=== PATIENT | female | born 1965 | race Caucasian/White ===

== ENCOUNTER 2016-05-23 06:02 | Day surgery (SDC) | payer BC ==
[~2016-05-23 06:02] MED LIST: IV START KIT ONE; LACTATED RINGERS 1,000 ML ONE
[2016-05-23] MEDS ORDERED: ONDANSETRON 4 MG/2ML 2 ML VIAL IV PRN (06:24)
[2016-05-23] MEDS ORDERED: LACTATED RINGERS 1,000 ML IV SCH (06:24)
[2016-05-23] MEDS ORDERED: LIDOCAINE 1% 2 ML VIAL ID PRN (06:24)
[2016-05-23] MEDS ORDERED: LIDOCAINE 2% (PRES FREE) 5 ML VIAL ONE (06:58)
[2016-05-23] MEDS ORDERED: PROPOFOL 20 ML IV ONE (06:58)
[2016-05-23] MEDS ORDERED: METOCLOPRAMIDE HCL 5 MG/ML 2ML VIAL ONE (07:07)
[2016-05-23] MEDS ORDERED: FAMOTIDINE 10 MG/ML 2ML VIAL ONE (07:09)
== END 2016-05-23 08:32 | disposition home or self-care (01) ==
LOC: SDC 06:02
PROVIDERS: ATTEND Surgery
PROC: 0DJD8ZZ Inspection of Lower Intestinal Tract, Via Natural or Artificial Opening Endoscopic (ICD-10-PCS; principal; 2016-05-23)
DX: Z12.11 Encounter for screening for malignant neoplasm of colon (principal); K64.1 Second degree hemorrhoids; K64.4 Residual hemorrhoidal skin tags; Z85.72 Personal history of non-Hodgkin lymphomas; Z79.82 Long term (current) use of aspirin; Z86.69 Personal history of other diseases of the nervous system and sense organs; Z80.0 Family history of malignant neoplasm of digestive organs; Z80.8 Family history of malignant neoplasm of other organs or systems
CPT/HCPCS: 45378; J2765; J7120